=== PATIENT | male | born 1940 | race Caucasian/White ===

== ENCOUNTER 2024-02-04 12:49 | Inpatient (IN) | payer MEDICARE, OTHER ==
[~2024-02-04] VITALS: Ht 188 cm; Wt 84.0 kg
[2024-02-04] VITALS (19 sets, daily range): BP systolic 76–128; BP diastolic 44–82; PULSE 76–135; RESP 16–29; O2SAT 90–97
[2024-02-04] MEDS: amiodarone/D5 360MG/200ML BAG 200 ML IV SCH (13:00)
[2024-02-04 13:06] LABS: ABG BASE EXCESS -3.1 mmol/L (-2.0-2.0); ABG HCO3 22.8 mmol/L (22.0-26.0); ABG OXYGEN SATURATION 93.9 % (94-97); ABG PCO2 (T) 39.7 mmHg (35.0-48.0); ABG PH (T) 7.366 (7.340-7.440); ABG PO2 (T) 65.1 mmHg (75.0-100.0); ALLEN'S TEST POSITIVE; FCOHb 0.3 % (0.0-3.9); FHHb 6.1 % (0.0-5.0); FMetHb 0.1 % (0.0-1.5); FO2Hb 93.5 % (94-97); MODE VENT - AC; PATIENT TEMPERATURE 34.7; PEEP 5 cm H2O; RESPIRATORY RATE 14 b/min; TIDAL VOLUME 450 mL; TOTAL HEMOGLOBIN 12.8 G/dl (14.0-17.9)
[2024-02-04] MEDS ORDERED: midazolam 100mg in NS 100ml 100 ML IV PRN (13:10)
[2024-02-04] MEDS ORDERED: acetaminophen 325mg tablet PO PRN ×3 (13:10→16:30)
[2024-02-04] MEDS ORDERED: ondansetron/PF 4mg/2ml inj IV PRN (13:10)
[2024-02-04] MEDS ORDERED: magnesium hydroxide 30ml (MOM) UD suspension PO PRN (13:10)
[2024-02-04] MEDS: FENTANYL-0.9 % NACL/PF 100 ML IV SCH (13:15)
[2024-02-04] MEDS: MIDAZOLAM IN NACL,ISO-OSMOT/PF 100 ML IV PRN (13:15)
[2024-02-04] MEDS: NORepinephrine 8mg/ 250ml NS 250 ML IV SCH (13:56)
[2024-02-04 14:07] LABS: BASOPHILS % (AUTO) 0.1 % (0-1); EOSINOPHILS % (AUTO) 0.2 % (0-6); HEMATOCRIT 39.7 % (42.0-52.0); LYMPHOCYTES # (AUTO) 1.2 X10'3 (1.1-4.8); LYMPHOCYTES % (AUTO) 5.1 % (21-51); MEAN CORPUSCULAR HGB CONC 32.7 g/dL (33.0-36.5); MEAN CORPUSCULAR VOLUME 97.7 FL (78-98); MEAN PLATELET VOLUME 8.2 FL (7.4-10.4); MONOCYTES % (AUTO) 8.3 % (2-12); NEUTROPHILS # (AUTO) 21.1 X10'3 (1.8-7.7); NEUTROPHILS % (AUTO) 86.3 % (42-75); PLATELET COUNT 319 X10'3 (140-440); RED BLOOD COUNT 4.06 X10'6 (4.70-6.10); RED CELL DISTRIBUTION WIDTH 14.5 % (11.5-14.5); WHITE BLOOD COUNT 24.5 X10'3 (4.5-11.0)
[2024-02-04 14:12] LABS: ALBUMIN 3.4 G/DL (3.4-5.0); ANION GAP 11 (8-16); BLOOD UREA NITROGEN 22 MG/DL (7-18); BUN/CREATININE RATIO 18.3 (10.0-20.0); CALCIUM 7.8 MG/DL (8.5-10.1); CHLORIDE 107 MMOL/L (99-107); GLUCOSE 149 MG/DL (70-104); POTASSIUM 3.6 MMOL/L (3.5-5.1); PRO BRAIN NATRIURETIC PEPTIDE 541 PG/ML (0-450); SODIUM 141 MMOL/L (135-145); TOTAL CARBON DIOXIDE 22.7 MMOL/L (24-32); eCRCL 52 ML/MIN; eGFR 58 ML/MIN
[2024-02-04 14:59] LABS: ALANINE AMINOTRANSFERASE 41 U/L (12-78); ALBUMIN/GLOBULIN RATIO 1.1 (1.1-1.5); ALKALINE PHOSPHATASE 105 IU/L (46-116); ASPARTATE AMINO TRANSFERASE 43 U/L (10-37); BILIRUBIN,TOTAL 0.6 MG/DL (0.1-1.0); TOTAL PROTEIN 6.4 G/DL (6.4-8.2)
[2024-02-04] MEDS: propofol 1000mg/100ml bottle 100 ML IV ONE (15:49)
[2024-02-04] MEDS: propofol 1000mg/100ml bottle 100 ML IV SCH ×2 (16:00→21:02)
[2024-02-04] MEDS: ringers solution, lacted 1,000 ML IV ONE ×5 (16:01→23:34)
[2024-02-04 16:44] LABS: TRIGLYCERIDES 100 MG/DL (20-135)
[2024-02-04] MEDS ORDERED: WARF1TAB83 PO (17:30)
[2024-02-04] MEDS ORDERED: FLO0.4C PO (17:30)
[2024-02-04] MEDS ORDERED: DOCU-22 PO (17:30)
[2024-02-04] MEDS ORDERED: FURO20TA4 PO (17:30)
[2024-02-04] MEDS ORDERED: WARF-55 PO (17:30)
[2024-02-04] MEDS: famotidine/PF 10 mg/ml inj IV SCH (20:44)
[2024-02-04] MEDS: normal saline 1000ml 1,000 ML IV SCH (20:44)
[2024-02-05] VITALS (33 sets, daily range): BP systolic 94–129; BP diastolic 35–59; PULSE 59–91; RESP 12–23; O2SAT 94–99
[2024-02-05] MEDS: piperacillin/tazo 4.5gm/100ml 100 ML IV SCH (00:11)
[2024-02-05 01:28] LABS: BASOPHILS % (AUTO) 0.1 % (0-1); EOSINOPHILS % (AUTO) 0 % (0-6); HEMATOCRIT 37.8 % (42.0-52.0); HEMOGLOBIN 12.6 g/dl (14.0-17.9); LYMPHOCYTES # (AUTO) 0.8 X10'3 (1.1-4.8); LYMPHOCYTES % (AUTO) 3.8 % (21-51); MEAN CORPUSCULAR HEMOGLOBIN 32.3 PG (27.0-31.0); MEAN CORPUSCULAR HGB CONC 33.5 g/dL (33.0-36.5); MEAN CORPUSCULAR VOLUME 96.5 FL (78-98); MEAN PLATELET VOLUME 8.6 FL (7.4-10.4); MONOCYTES # (AUTO) 1.5 X10'3 (0-0.9); MONOCYTES % (AUTO) 7.3 % (2-12); NEUTROPHILS # (AUTO) 17.7 X10'3 (1.8-7.7); NEUTROPHILS % (AUTO) 88.8 % (42-75); PLATELET COUNT 299 X10'3 (140-440); RED BLOOD COUNT 3.92 X10'6 (4.70-6.10); RED CELL DISTRIBUTION WIDTH 14.2 % (11.5-14.5); WHITE BLOOD COUNT 19.9 X10'3 (4.5-11.0)
[2024-02-05 01:39] LABS: ALANINE AMINOTRANSFERASE 30 U/L (12-78); ALBUMIN 2.5 G/DL (3.4-5.0); ALBUMIN/GLOBULIN RATIO 1.1 (1.1-1.5); ALKALINE PHOSPHATASE 69 IU/L (46-116); ANION GAP 9 (8-16); ASPARTATE AMINO TRANSFERASE 44 U/L (10-37); BILIRUBIN,TOTAL 0.6 MG/DL (0.1-1.0); BLOOD UREA NITROGEN 20 MG/DL (7-18); CALCIUM 7.1 MG/DL (8.5-10.1); CHLORIDE 107 MMOL/L (99-107); CREATININE 1.11 MG/DL (0.60-1.10); GLUCOSE 148 MG/DL (70-104); MAGNESIUM 1.4 MG/DL (1.5-2.4); PHOSPHORUS 2.4 MG/DL (2.3-4.5); POTASSIUM 3.8 MMOL/L (3.5-5.1); SODIUM 139 MMOL/L (135-145); TOTAL CARBON DIOXIDE 22.8 MMOL/L (24-32); TOTAL PROTEIN 4.8 G/DL (6.4-8.2); TRIGLYCERIDES 161 MG/DL (20-135); eCRCL 57 ML/MIN; eGFR 63 ML/MIN
[2024-02-05] MEDS ORDERED: potassium Cl 40MEQ/270ML bag 270 ML IV PRN (01:55)
[2024-02-05] MEDS ORDERED: Potassium Cl inj 20 MEQ in normal saline 1000ml 990 ML IV PRN (01:55)
[2024-02-05] MEDS ORDERED: Neutra Phos packet PO PRN (01:55)
[2024-02-05] MEDS ORDERED: potassium Cl 20 mEq SR tablet PO PRN ×2 (01:55)
[2024-02-05] MEDS ORDERED: sodium phosphate inj. 30 MMOL in dextrose 5%-water 250 ML IV PRN (01:55)
[2024-02-05] MEDS: magnesium 2GM in 50ml NS 50 ML IV PRN (02:13)
[2024-02-05] MEDS ORDERED: potassium Cl 20mEq in NS 1,000 ML IV PRN (02:16)
[2024-02-05 03:13] LABS: ABG BASE EXCESS -6.6 mmol/L (-2.0-2.0); ABG HCO3 18.3 mmol/L (22.0-26.0); ABG OXYGEN SATURATION 96.6 % (94-97); ABG PCO2 (T) 33.3 mmHg (35.0-48.0); ABG PH (T) 7.354 (7.340-7.440); ALLEN'S TEST Modified; FCOHb 0.7 % (0.0-3.9); FHHb 3.4 % (0.0-5.0); FMetHb 0.3 % (0.0-1.5); FO2Hb 95.6 % (94-97); MODE VENT - PRVC; PATIENT TEMPERATURE 36.1; PEEP 5 cm H2O; RESPIRATORY RATE 18 b/min; TIDAL VOLUME 450 mL; TOTAL HEMOGLOBIN 13.7 G/dl (14.0-17.9)
[2024-02-05] MEDS: magnesium 4gm in 100ml NS 100 ML IV PRN (05:00)
[2024-02-05] MEDS: enoxaparin 40mg/0.4ml syringe SUBCUT SCH (07:29)
[2024-02-05] MEDS: K and/or MAG REPLACEMENT MC SCH (08:00)
[2024-02-06] VITALS (37 sets, daily range): BP systolic 88–125; BP diastolic 41–62; PULSE 67–112; RESP 13–32; O2SAT 92–100
[2024-02-06 02:06] LABS: BASOPHILS % (AUTO) 0 % (0-1); EOSINOPHILS % (AUTO) 0 % (0-6); HEMATOCRIT 37.8 % (42.0-52.0); HEMOGLOBIN 12.6 g/dl (14.0-17.9); LYMPHOCYTES # (AUTO) 0.5 X10'3 (1.1-4.8); LYMPHOCYTES % (AUTO) 2.5 % (21-51); MEAN CORPUSCULAR HEMOGLOBIN 31.9 PG (27.0-31.0); MEAN CORPUSCULAR HGB CONC 33.2 g/dL (33.0-36.5); MEAN CORPUSCULAR VOLUME 95.8 FL (78-98); MEAN PLATELET VOLUME 8.4 FL (7.4-10.4); MONOCYTES # (AUTO) 1.2 X10'3 (0-0.9); NEUTROPHILS # (AUTO) 17.9 X10'3 (1.8-7.7); NEUTROPHILS % (AUTO) 91.5 % (42-75); PLATELET COUNT 210 X10'3 (140-440); RED BLOOD COUNT 3.94 X10'6 (4.70-6.10); RED CELL DISTRIBUTION WIDTH 14.5 % (11.5-14.5); WHITE BLOOD COUNT 19.6 X10'3 (4.5-11.0)
[2024-02-06 02:22] LABS: ALANINE AMINOTRANSFERASE 29 U/L (12-78); ALBUMIN 2.4 G/DL (3.4-5.0); ALBUMIN/GLOBULIN RATIO 0.9 (1.1-1.5); ALKALINE PHOSPHATASE 68 IU/L (46-116); ANION GAP 9 (8-16); ASPARTATE AMINO TRANSFERASE 35 U/L (10-37); BILIRUBIN,TOTAL 0.7 MG/DL (0.1-1.0); BLOOD UREA NITROGEN 23 MG/DL (7-18); BUN/CREATININE RATIO 20.2 (10.0-20.0); CALCIUM 7.5 MG/DL (8.5-10.1); CHLORIDE 105 MMOL/L (99-107); CREATININE 1.14 MG/DL (0.60-1.10); GLUCOSE 146 MG/DL (70-104); MAGNESIUM 2.3 MG/DL (1.5-2.4); PHOSPHORUS 2.8 MG/DL (2.3-4.5); POTASSIUM 3.7 MMOL/L (3.5-5.1); SODIUM 135 MMOL/L (135-145); TOTAL CARBON DIOXIDE 21.2 MMOL/L (24-32); TOTAL PROTEIN 5.2 G/DL (6.4-8.2); eCRCL 55 ML/MIN; eGFR 61 ML/MIN
[2024-02-06 03:00] LABS: ABG BASE EXCESS -7.1 mmol/L (-2.0-2.0); ABG OXYGEN SATURATION 94.3 % (94-97); ABG PCO2 (T) 29.3 mmHg (35.0-48.0); ABG PH (T) 7.379 (7.340-7.440); ABG PO2 (T) 67.8 mmHg (75.0-100.0); ALLEN'S TEST Modified; FCOHb 0.5 % (0.0-3.9); FHHb 5.7 % (0.0-5.0); FMetHb 0.3 % (0.0-1.5); FO2Hb 93.5 % (94-97); MODE VENT - CPAP; PATIENT TEMPERATURE 36.2; TOTAL HEMOGLOBIN 13.1 G/dl (14.0-17.9)
[2024-02-06] MEDS: furosemide 40mg/4ml inj IV ONE ×2 (08:08→17:27)
[2024-02-06] MEDS: amiodarone 200mg tablet NG SCH (11:18)
[2024-02-06 17:56] LABS: ABG BASE EXCESS 0.5 mmol/L (-2.0-2.0); ABG HCO3 24.9 mmol/L (22.0-26.0); ABG OXYGEN SATURATION 92.8 % (94-97); ABG PCO2 (T) 40.9 mmHg (35.0-48.0); ABG PH (T) 7.406 (7.340-7.440); ABG PO2 (T) 67.9 mmHg (75.0-100.0); ALLEN'S TEST POSITIVE; FCOHb 0.5 % (0.0-3.9); FHHb 7.1 % (0.0-5.0); FLOW 15 L/min; FMetHb 0.3 % (0.0-1.5); FO2Hb 92.1 % (94-97); MODE MASK - NRB; PATIENT TEMPERATURE 37.7; TOTAL HEMOGLOBIN 12.4 G/dl (14.0-17.9)
[2024-02-06] MEDS: morphine 4 MG/ML inj SYRINge IV PRN (20:31)
[2024-02-06] MEDS: sennosides/docusate sodium tablet NG SCH (20:31)
[2024-02-07] VITALS (31 sets, daily range): BP systolic 89–123; BP diastolic 41–75; PULSE 72–107; RESP 14–43; O2SAT 84–97
[2024-02-07 02:36] LABS: BASOPHILS % (AUTO) 0.3 % (0-1); EOSINOPHILS % (AUTO) 0 % (0-6); HEMATOCRIT 33.3 % (42.0-52.0); HEMOGLOBIN 10.9 g/dl (14.0-17.9); LYMPHOCYTES # (AUTO) 0.2 X10'3 (1.1-4.8); LYMPHOCYTES % (AUTO) 1.7 % (21-51); MEAN CORPUSCULAR HEMOGLOBIN 31.3 PG (27.0-31.0); MEAN CORPUSCULAR HGB CONC 32.7 g/dL (33.0-36.5); MEAN CORPUSCULAR VOLUME 95.7 FL (78-98); MEAN PLATELET VOLUME 9.1 FL (7.4-10.4); MONOCYTES # (AUTO) 0.6 X10'3 (0-0.9); MONOCYTES % (AUTO) 4.1 % (2-12); NEUTROPHILS # (AUTO) 12.6 X10'3 (1.8-7.7); NEUTROPHILS % (AUTO) 93.9 % (42-75); PLATELET COUNT 152 X10'3 (140-440); RED BLOOD COUNT 3.48 X10'6 (4.70-6.10); RED CELL DISTRIBUTION WIDTH 14.4 % (11.5-14.5); WHITE BLOOD COUNT 13.4 X10'3 (4.5-11.0)
[2024-02-07 02:49] LABS: ALANINE AMINOTRANSFERASE 24 U/L (12-78); ALBUMIN 2.2 G/DL (3.4-5.0); ALBUMIN/GLOBULIN RATIO 0.8 (1.1-1.5); ALKALINE PHOSPHATASE 61 IU/L (46-116); ANION GAP 5 (8-16); ASPARTATE AMINO TRANSFERASE 25 U/L (10-37); BILIRUBIN,TOTAL 1.4 MG/DL (0.1-1.0); BLOOD UREA NITROGEN 20 MG/DL (7-18); CALCIUM 7.6 MG/DL (8.5-10.1); CHLORIDE 104 MMOL/L (99-107); CREATININE 1.11 MG/DL (0.60-1.10); GLUCOSE 128 MG/DL (70-104); MAGNESIUM 1.8 MG/DL (1.5-2.4); PHOSPHORUS 2.2 MG/DL (2.3-4.5); PREALBUMIN 11.9 MG/DL (19-36); SODIUM 137 MMOL/L (135-145); TOTAL CARBON DIOXIDE 28.4 MMOL/L (24-32); TOTAL PROTEIN 5.1 G/DL (6.4-8.2); TRIGLYCERIDES 79 MG/DL (20-135); eCRCL 57 ML/MIN; eGFR 63 ML/MIN
[2024-02-07 03:06] LABS: PLATELET ESTIMATE NORMAL; TOTAL CELLS COUNTED 100
[2024-02-07] MEDS: potassium Cl 20mEq/100mL bag 100 ML IV PRN (04:23)
[2024-02-07] MEDS: sodium phosphate inj. 15 MMOL in dextrose 5%-water 250 ML IV PRN (04:45)
[2024-02-07] MEDS: pantoprazole 40 MG vial IV SCH (07:41)
[2024-02-07] MEDS ORDERED: POTASSIUM CHLORIDE 20 MEQ/15 ML oral solution PO PRN ×2 (10:42→10:43)
[2024-02-07] MEDS ORDERED: POTASSIUM CHLORIDE 20 MEQ/15 ML oral solution NG PRN ×2 (10:42→10:43)
[2024-02-07] MEDS ORDERED: acetaminophen 325mg tablet NG PRN (10:45)
[2024-02-07 12:15] LABS: INR 2.8 INR
[2024-02-07] MEDS: dexmedetomidin/NS 400mcg/100ml 100 ML IV SCH (14:23)
[2024-02-07] MEDS: furosemide 40 MG/4 ML oral solution UD cup NG ONE (15:47)
[2024-02-07 19:28] LABS: ABG BASE EXCESS 1.5 mmol/L (-2.0-2.0); ABG HCO3 24.1 mmol/L (22.0-26.0); ABG OXYGEN SATURATION 93.7 % (94-97); ABG PCO2 (T) 32.5 mmHg (35.0-48.0); ABG PH (T) 7.491 (7.340-7.440); ABG PO2 (T) 69.3 mmHg (75.0-100.0); FCOHb 0.3 % (0.0-3.9); FHHb 6.3 % (0.0-5.0); FO2Hb 93.4 % (94-97); MODE MASK - BIPAP; PATIENT TEMPERATURE 37.7; TOTAL HEMOGLOBIN 11.4 G/dl (14.0-17.9)
[2024-02-07] MEDS: warfarin 3mg tablet PO ONE (21:32)
[2024-02-08] VITALS (30 sets, daily range): BP systolic 99–140; BP diastolic 42–80; PULSE 55–100; RESP 8–39; O2SAT 87–99
[2024-02-08 02:01] LABS: BASOPHILS % (AUTO) 0.1 % (0-1); EOSINOPHILS % (AUTO) 0 % (0-6); LYMPHOCYTES # (AUTO) 0.5 X10'3 (1.1-4.8); LYMPHOCYTES % (AUTO) 3.5 % (21-51); MEAN CORPUSCULAR HEMOGLOBIN 31.7 PG (27.0-31.0); MEAN CORPUSCULAR HGB CONC 33.3 g/dL (33.0-36.5); MEAN CORPUSCULAR VOLUME 95.1 FL (78-98); MONOCYTES # (AUTO) 1.2 X10'3 (0-0.9); MONOCYTES % (AUTO) 8.2 % (2-12); NEUTROPHILS # (AUTO) 13.2 X10'3 (1.8-7.7); NEUTROPHILS % (AUTO) 88.2 % (42-75); PLATELET COUNT 180 X10'3 (140-440); RED BLOOD COUNT 3.47 X10'6 (4.70-6.10); RED CELL DISTRIBUTION WIDTH 14.1 % (11.5-14.5)
[2024-02-08 02:13] LABS: ALANINE AMINOTRANSFERASE 21 U/L (12-78); ALBUMIN 2.2 G/DL (3.4-5.0); ALBUMIN/GLOBULIN RATIO 0.6 (1.1-1.5); ALKALINE PHOSPHATASE 67 IU/L (46-116); ANION GAP 2 (8-16); ASPARTATE AMINO TRANSFERASE 16 U/L (10-37); BILIRUBIN,TOTAL 1.8 MG/DL (0.1-1.0); BLOOD UREA NITROGEN 26 MG/DL (7-18); BUN/CREATININE RATIO 22.4 (10.0-20.0); CHLORIDE 107 MMOL/L (99-107); CREATININE 1.16 MG/DL (0.60-1.10); GLUCOSE 150 MG/DL (70-104); MAGNESIUM 1.8 MG/DL (1.5-2.4); PHOSPHORUS 1.9 MG/DL (2.3-4.5); POTASSIUM 3.7 MMOL/L (3.5-5.1); SODIUM 140 MMOL/L (135-145); TOTAL PROTEIN 5.6 G/DL (6.4-8.2); eCRCL 54 ML/MIN; eGFR 60 ML/MIN
[2024-02-08 02:19] LABS: INR 2.1 INR; PROTHROMBIN TIME 20.4 SECONDS (9.0-12.0)
[2024-02-08 03:57] LABS: ABG BASE EXCESS 0.8 mmol/L (-2.0-2.0); ABG HCO3 24.9 mmol/L (22.0-26.0); ABG PCO2 (T) 38.1 mmHg (35.0-48.0); ABG PH (T) 7.434 (7.340-7.440); ABG PO2 (T) 67.7 mmHg (75.0-100.0); FCOHb 0.8 % (0.0-3.9); FHHb 6.9 % (0.0-5.0); FMetHb 0.3 % (0.0-1.5); MODE MASK - BIPAP; PATIENT TEMPERATURE 37.1; RESPIRATORY RATE 12 b/min; TOTAL HEMOGLOBIN 11.4 G/dl (14.0-17.9)
[2024-02-08] MEDS: furosemide 40mg/4ml inj IV ONE ×2 (04:20→15:23)
[2024-02-08] MEDS: furosemide 40 MG/4 ML oral solution UD cup NG SCH (07:33)
[2024-02-08] MEDS: methylPREDNISolone sod succ 125mg/2ml vial IV SCH (07:34)
[2024-02-08] MEDS: Neutra Phos packet NG PRN (07:35)
[2024-02-08] MEDS: magnesium hydroxide 30ml (MOM) UD suspension NG PRN (13:21)
[2024-02-08] MEDS: morphine 2 MG/ML inj. syringe IV PRN (14:10)
[2024-02-08] MEDS ORDERED: Dextrose 10%-water IV solution 1,000 ML IV SCH (14:50)
[2024-02-08] MEDS ORDERED: DEXTROSE 15 GM of carb/4 tabs (each vial/BOTTLE has 4 tablets) PO PRN ×2 (14:50)
[2024-02-08] MEDS ORDERED: glucagon, human recombinant 1mg kit SUBCUT PRN (14:50)
[2024-02-08] MEDS ORDERED: dextrose 50%-water 50ml dispensing syringe IV PRN (14:50)
[2024-02-08] MEDS: methylPREDNISolone sod succ/PF 40mg inj. IV SCH (15:02)
[2024-02-08 17:38] LABS: HEMOGLOBIN A1C 5.5 % (4.5-6.2)
[2024-02-08] MEDS ORDERED: insulin regular, human U-100 3ml vial - multi-dose SQ SCH (20:00)
[2024-02-08] MEDS: warfarin 2.5mg tablet PO ONE (21:10)
[2024-02-08] MEDS: insulin regular, human U-100 3ml vial - multi-dose SQ SCH (21:17)
[2024-02-09] VITALS (31 sets, daily range): BP systolic 88–118; BP diastolic 37–65; PULSE 54–87; RESP 17–41; O2SAT 63–96
[2024-02-09 02:06] LABS: BASOPHILS % (AUTO) 0.1 % (0-1); EOSINOPHILS % (AUTO) 0 % (0-6); LYMPHOCYTES # (AUTO) 0.2 X10'3 (1.1-4.8); MEAN CORPUSCULAR HEMOGLOBIN 32.3 PG (27.0-31.0); MEAN CORPUSCULAR HGB CONC 34.2 g/dL (33.0-36.5); MEAN CORPUSCULAR VOLUME 94.5 FL (78-98); MEAN PLATELET VOLUME 8.5 FL (7.4-10.4); MONOCYTES # (AUTO) 0.8 X10'3 (0-0.9); MONOCYTES % (AUTO) 8.6 % (2-12); NEUTROPHILS # (AUTO) 8.4 X10'3 (1.8-7.7); NEUTROPHILS % (AUTO) 89.3 % (42-75); PLATELET COUNT 142 X10'3 (140-440); RED BLOOD COUNT 3.39 X10'6 (4.70-6.10); WHITE BLOOD COUNT 9.4 X10'3 (4.5-11.0)
[2024-02-09 02:18] LABS: INR 1.7 INR; PROTHROMBIN TIME 17.4 SECONDS (9.0-12.0)
[2024-02-09 02:22] LABS: ALANINE AMINOTRANSFERASE 15 U/L (12-78); ALBUMIN/GLOBULIN RATIO 0.5 (1.1-1.5); ALKALINE PHOSPHATASE 59 IU/L (46-116); ANION GAP 5 (8-16); ASPARTATE AMINO TRANSFERASE 7 U/L (10-37); BILIRUBIN,TOTAL 1.3 MG/DL (0.1-1.0); BLOOD UREA NITROGEN 33 MG/DL (7-18); BUN/CREATININE RATIO 29.7 (10.0-20.0); CHLORIDE 102 MMOL/L (99-107); CREATININE 1.11 MG/DL (0.60-1.10); GLUCOSE 206 MG/DL (70-104); PHOSPHORUS 2.2 MG/DL (2.3-4.5); SODIUM 141 MMOL/L (135-145); TOTAL CARBON DIOXIDE 33.8 MMOL/L (24-32); TOTAL PROTEIN 5.7 G/DL (6.4-8.2); eCRCL 57 ML/MIN; eGFR 63 ML/MIN
[2024-02-09] MEDS: NORepinephrine 8mg/ 250ml NS 250 ML IV SCH (10:52)
[2024-02-09] MEDS: methylPREDNISolone sod succ/PF 40mg inj. IV SCH (14:28)
[2024-02-09] MEDS: bisacodyl 10mg suppository rectal RC PRN (20:27)
[2024-02-09] MEDS: quetiapine 100mg tablet PO SCH (21:13)
[2024-02-09] MEDS: warfarin 4mg tablet PO ONE (21:22)
[2024-02-10] VITALS (31 sets, daily range): BP systolic 80–130; BP diastolic 42–56; PULSE 69–105; RESP 14–37; O2SAT 87–98
[2024-02-10 02:59] LABS: BASOPHILS % (AUTO) 0.1 % (0-1); EOSINOPHILS % (AUTO) 0 % (0-6); HEMATOCRIT 30.2 % (42.0-52.0); LYMPHOCYTES # (AUTO) 0.2 X10'3 (1.1-4.8); LYMPHOCYTES % (AUTO) 1.9 % (21-51); MEAN CORPUSCULAR HEMOGLOBIN 31.4 PG (27.0-31.0); MEAN CORPUSCULAR HGB CONC 33.1 g/dL (33.0-36.5); MEAN CORPUSCULAR VOLUME 95.1 FL (78-98); MEAN PLATELET VOLUME 9.7 FL (7.4-10.4); MONOCYTES # (AUTO) 0.6 X10'3 (0-0.9); MONOCYTES % (AUTO) 6.9 % (2-12); NEUTROPHILS # (AUTO) 8.5 X10'3 (1.8-7.7); NEUTROPHILS % (AUTO) 91.1 % (42-75); PLATELET COUNT 132 X10'3 (140-440); RED BLOOD COUNT 3.17 X10'6 (4.70-6.10); RED CELL DISTRIBUTION WIDTH 14.5 % (11.5-14.5); WHITE BLOOD COUNT 9.3 X10'3 (4.5-11.0)
[2024-02-10 03:07] LABS: INR 1.7 INR; PROTHROMBIN TIME 16.7 SECONDS (9.0-12.0)
[2024-02-10 03:15] LABS: ALANINE AMINOTRANSFERASE 18 U/L (12-78); ALBUMIN 1.9 G/DL (3.4-5.0); ALBUMIN/GLOBULIN RATIO 0.6 (1.1-1.5); ALKALINE PHOSPHATASE 49 IU/L (46-116); ANION GAP 3 (8-16); ASPARTATE AMINO TRANSFERASE 10 U/L (10-37); BILIRUBIN,TOTAL 1.3 MG/DL (0.1-1.0); BLOOD UREA NITROGEN 48 MG/DL (7-18); BUN/CREATININE RATIO 43.6 (10.0-20.0); CALCIUM 8.2 MG/DL (8.5-10.1); CHLORIDE 105 MMOL/L (99-107); GLUCOSE 155 MG/DL (70-104); MAGNESIUM 2.2 MG/DL (1.5-2.4); PHOSPHORUS 3.3 MG/DL (2.3-4.5); POTASSIUM 3.8 MMOL/L (3.5-5.1); SODIUM 141 MMOL/L (135-145); TOTAL CARBON DIOXIDE 32.9 MMOL/L (24-32); TOTAL PROTEIN 5.2 G/DL (6.4-8.2); TRIGLYCERIDES 108 MG/DL (20-135); eCRCL 57 ML/MIN; eGFR 64 ML/MIN
[2024-02-10] MEDS: magnesium 2GM in 50ml NS 50 ML IV ONE (09:51)
[2024-02-10] MEDS: amiodarone 200mg tablet PO ONE (09:51)
[2024-02-10] MEDS: potassium Cl 20mEq/100mL bag 100 ML IV SCH (12:22)
[2024-02-10] MEDS: amiodarone 200mg tablet NG SCH (19:42)
[2024-02-10] MEDS: warfarin 5mg tablet PO ONE (19:51)
[2024-02-10] MEDS: traZODone 50mg tablet PO ONE (21:27)
[2024-02-11] VITALS (29 sets, daily range): BP systolic 98–139; BP diastolic 41–60; PULSE 89–116; RESP 19–31; O2SAT 88–96
[2024-02-11 02:51] LABS: BASOPHILS % (AUTO) 0 % (0-1); EOSINOPHILS % (AUTO) 0 % (0-6); HEMATOCRIT 28.7 % (42.0-52.0); HEMOGLOBIN 9.5 g/dl (14.0-17.9); LYMPHOCYTES # (AUTO) 0.1 X10'3 (1.1-4.8); LYMPHOCYTES % (AUTO) 1.5 % (21-51); MEAN CORPUSCULAR HGB CONC 33.2 g/dL (33.0-36.5); MEAN CORPUSCULAR VOLUME 96.3 FL (78-98); MEAN PLATELET VOLUME 9.3 FL (7.4-10.4); MONOCYTES # (AUTO) 0.4 X10'3 (0-0.9); MONOCYTES % (AUTO) 4.6 % (2-12); NEUTROPHILS # (AUTO) 7.6 X10'3 (1.8-7.7); NEUTROPHILS % (AUTO) 93.9 % (42-75); PLATELET COUNT 135 X10'3 (140-440); RED BLOOD COUNT 2.98 X10'6 (4.70-6.10); RED CELL DISTRIBUTION WIDTH 14.5 % (11.5-14.5); WHITE BLOOD COUNT 8.1 X10'3 (4.5-11.0)
[2024-02-11 02:59] LABS: INR 2.2 INR; PROTHROMBIN TIME 22.2 SECONDS (9.0-12.0)
[2024-02-11 03:06] LABS: ALANINE AMINOTRANSFERASE 19 U/L (12-78); ALBUMIN 1.8 G/DL (3.4-5.0); ALBUMIN/GLOBULIN RATIO 0.6 (1.1-1.5); ALKALINE PHOSPHATASE 48 IU/L (46-116); ANION GAP 4 (8-16); ASPARTATE AMINO TRANSFERASE 18 U/L (10-37); BLOOD UREA NITROGEN 54 MG/DL (7-18); BUN/CREATININE RATIO 44.6 (10.0-20.0); CALCIUM 7.8 MG/DL (8.5-10.1); CHLORIDE 110 MMOL/L (99-107); CREATININE 1.21 MG/DL (0.60-1.10); GLUCOSE 195 MG/DL (70-104); MAGNESIUM 2.6 MG/DL (1.5-2.4); PHOSPHORUS 3.3 MG/DL (2.3-4.5); POTASSIUM 4.3 MMOL/L (3.5-5.1); SODIUM 147 MMOL/L (135-145); TOTAL CARBON DIOXIDE 33.3 MMOL/L (24-32); TOTAL PROTEIN 4.8 G/DL (6.4-8.2); eCRCL 50 ML/MIN; eGFR 57 ML/MIN
[2024-02-11 03:16] LABS: PREALBUMIN 11.8 MG/DL (19-36)
[2024-02-11] MEDS: warfarin 4mg tablet PO ONE (19:12)
[2024-02-12] VITALS (31 sets, daily range): BP systolic 90–116; BP diastolic 39–52; PULSE 79–101; RESP 20–36; O2SAT 83–97
[2024-02-12 05:45] LABS: BASOPHILS % (AUTO) 0.1 % (0-1); EOSINOPHILS % (AUTO) 0 % (0-6); HEMATOCRIT 30.9 % (42.0-52.0); HEMOGLOBIN 10.1 g/dl (14.0-17.9); LYMPHOCYTES # (AUTO) 0.1 X10'3 (1.1-4.8); LYMPHOCYTES % (AUTO) 1.1 % (21-51); MEAN CORPUSCULAR HEMOGLOBIN 31.7 PG (27.0-31.0); MEAN CORPUSCULAR HGB CONC 32.8 g/dL (33.0-36.5); MEAN CORPUSCULAR VOLUME 96.6 FL (78-98); MEAN PLATELET VOLUME 9.4 FL (7.4-10.4); MONOCYTES # (AUTO) 0.5 X10'3 (0-0.9); MONOCYTES % (AUTO) 3.9 % (2-12); NEUTROPHILS # (AUTO) 12.9 X10'3 (1.8-7.7); NEUTROPHILS % (AUTO) 94.9 % (42-75); PLATELET COUNT 155 X10'3 (140-440); RED CELL DISTRIBUTION WIDTH 14.5 % (11.5-14.5); WHITE BLOOD COUNT 13.6 X10'3 (4.5-11.0)
[2024-02-12 05:56] LABS: INR 2.8 INR; PROTHROMBIN TIME 26.9 SECONDS (9.0-12.0)
[2024-02-12 06:02] LABS: ALANINE AMINOTRANSFERASE 22 U/L (12-78); ALBUMIN 1.8 G/DL (3.4-5.0); ALBUMIN/GLOBULIN RATIO 0.6 (1.1-1.5); ALKALINE PHOSPHATASE 51 IU/L (46-116); ANION GAP 4 (8-16); ASPARTATE AMINO TRANSFERASE 8 U/L (10-37); BILIRUBIN,TOTAL 0.8 MG/DL (0.1-1.0); BLOOD UREA NITROGEN 48 MG/DL (7-18); BUN/CREATININE RATIO 42.1 (10.0-20.0); CALCIUM 7.9 MG/DL (8.5-10.1); CHLORIDE 108 MMOL/L (99-107); CREATININE 1.14 MG/DL (0.60-1.10); GLUCOSE 180 MG/DL (70-104); MAGNESIUM 2.3 MG/DL (1.5-2.4); PHOSPHORUS 3.4 MG/DL (2.3-4.5); SODIUM 143 MMOL/L (135-145); TOTAL CARBON DIOXIDE 31.1 MMOL/L (24-32); TRIGLYCERIDES 69 MG/DL (20-135); eCRCL 55 ML/MIN; eGFR 61 ML/MIN
[2024-02-12] MEDS: warfarin 2.5mg tablet PO ONE (20:46)
[2024-02-13] VITALS (41 sets, daily range): BP systolic 94–118; BP diastolic 35–55; PULSE 77–98; RESP 22–33; O2SAT 90–96
[2024-02-13] MEDS: furosemide 40mg/4ml inj IV ONE (02:06)
[2024-02-13 07:22] LABS: BASOPHILS % (AUTO) 0.1 % (0-1); EOSINOPHILS % (AUTO) 0 % (0-6); HEMATOCRIT 32.7 % (42.0-52.0); HEMOGLOBIN 10.8 g/dl (14.0-17.9); LYMPHOCYTES # (AUTO) 0.2 X10'3 (1.1-4.8); MEAN CORPUSCULAR HEMOGLOBIN 31.6 PG (27.0-31.0); MEAN CORPUSCULAR HGB CONC 33.1 g/dL (33.0-36.5); MEAN CORPUSCULAR VOLUME 95.6 FL (78-98); MEAN PLATELET VOLUME 9.9 FL (7.4-10.4); MONOCYTES # (AUTO) 0.4 X10'3 (0-0.9); MONOCYTES % (AUTO) 2.6 % (2-12); NEUTROPHILS % (AUTO) 96.3 % (42-75); PLATELET COUNT 160 X10'3 (140-440); RED BLOOD COUNT 3.42 X10'6 (4.70-6.10); RED CELL DISTRIBUTION WIDTH 14.1 % (11.5-14.5); WHITE BLOOD COUNT 16.6 X10'3 (4.5-11.0)
[2024-02-13 07:32] LABS: INR 2.2 INR; PROTHROMBIN TIME 22.6 SECONDS (9.0-12.0)
[2024-02-13 07:54] LABS: ALANINE AMINOTRANSFERASE 24 U/L (12-78); ALBUMIN/GLOBULIN RATIO 0.6 (1.1-1.5); ALKALINE PHOSPHATASE 58 IU/L (46-116); ANION GAP 5 (8-16); ASPARTATE AMINO TRANSFERASE 14 U/L (10-37); BILIRUBIN,TOTAL 0.9 MG/DL (0.1-1.0); BLOOD UREA NITROGEN 48 MG/DL (7-18); CALCIUM 8.2 MG/DL (8.5-10.1); CHLORIDE 103 MMOL/L (99-107); GLUCOSE 200 MG/DL (70-104); MAGNESIUM 2.1 MG/DL (1.5-2.4); PHOSPHORUS 4.2 MG/DL (2.3-4.5); POTASSIUM 5.2 MMOL/L (3.5-5.1); SODIUM 139 MMOL/L (135-145); TOTAL CARBON DIOXIDE 31.1 MMOL/L (24-32); TOTAL PROTEIN 5.3 G/DL (6.4-8.2); TRIGLYCERIDES 77 MG/DL (20-135); eCRCL 52 ML/MIN; eGFR 58 ML/MIN
[2024-02-13] MEDS: albuterol 2.5 MG/3 ML nebule NEB SCH (11:08)
[2024-02-13] MEDS ORDERED: DEXTROSE 15 GM of carb/4 tabs (each vial/BOTTLE has 4 tablets) NG PRN ×2 (11:23)
[2024-02-13] MEDS: acetaminophen 325mg tablet NG PRN (16:01)
[2024-02-13] MEDS: ringers solution, lacted 1,000 ML IV ONE (17:45)
[2024-02-13] MEDS: quetiapine 100mg tablet NG SCH (21:05)
[2024-02-13] MEDS: warfarin 2.5mg tablet PO ONE (21:12)
[2024-02-14] VITALS (31 sets, daily range): BP systolic 92–119; BP diastolic 39–77; PULSE 72–100; RESP 19–35; TEMP 100; O2SAT 89–97
[2024-02-14] MEDS: furosemide 20 MG/2 ML vial IV ONE (03:24)
[2024-02-14 03:53] LABS: BASOPHILS % (AUTO) 0.2 % (0-1); EOSINOPHILS % (AUTO) 0 % (0-6); HEMATOCRIT 32.5 % (42.0-52.0); HEMOGLOBIN 10.8 g/dl (14.0-17.9); LYMPHOCYTES # (AUTO) 0.2 X10'3 (1.1-4.8); LYMPHOCYTES % (AUTO) 0.9 % (21-51); MEAN CORPUSCULAR HEMOGLOBIN 31.6 PG (27.0-31.0); MEAN CORPUSCULAR HGB CONC 33.2 g/dL (33.0-36.5); MEAN PLATELET VOLUME 9.8 FL (7.4-10.4); MONOCYTES # (AUTO) 0.5 X10'3 (0-0.9); MONOCYTES % (AUTO) 2.7 % (2-12); NEUTROPHILS # (AUTO) 19.1 X10'3 (1.8-7.7); NEUTROPHILS % (AUTO) 96.2 % (42-75); PLATELET COUNT 180 X10'3 (140-440); RED BLOOD COUNT 3.42 X10'6 (4.70-6.10); RED CELL DISTRIBUTION WIDTH 14.3 % (11.5-14.5); WHITE BLOOD COUNT 19.9 X10'3 (4.5-11.0)
[2024-02-14 04:00] LABS: INR 1.7 INR
[2024-02-14 04:04] LABS: ALANINE AMINOTRANSFERASE 23 U/L (12-78); ALBUMIN/GLOBULIN RATIO 0.6 (1.1-1.5); ALKALINE PHOSPHATASE 66 IU/L (46-116); ANION GAP 6 (8-16); ASPARTATE AMINO TRANSFERASE 13 U/L (10-37); BILIRUBIN,TOTAL 0.9 MG/DL (0.1-1.0); BLOOD UREA NITROGEN 45 MG/DL (7-18); BUN/CREATININE RATIO 39.5 (10.0-20.0); CALCIUM 8.2 MG/DL (8.5-10.1); CHLORIDE 103 MMOL/L (99-107); CREATININE 1.14 MG/DL (0.60-1.10); GLUCOSE 201 MG/DL (70-104); MAGNESIUM 2.1 MG/DL (1.5-2.4); POTASSIUM 5.3 MMOL/L (3.5-5.1); PREALBUMIN 21.1 MG/DL (19-36); SODIUM 139 MMOL/L (135-145); TOTAL PROTEIN 5.4 G/DL (6.4-8.2); eCRCL 55 ML/MIN; eGFR 61 ML/MIN
[2024-02-14] MEDS: furosemide 20 MG/2 ML vial IV SCH (08:58)
[2024-02-14] MEDS ORDERED: morphine 10mg/ml inj. IV PRN (14:30)
[2024-02-14] MEDS: scopolamine 1MG/72H patch 1 PATCH PATCH.TD.3 TD SCH (20:36)
[2024-02-14] MEDS ORDERED: warfarin 3mg tablet PO ONE (21:00)
[2024-02-14] MEDS: morphine 10mg/0.5ml (conc. morphine) oral syringe PO PRN (22:33)
[2024-02-15] MEDS: diazepam inj 5 MG/ML inj. IV PRN ×3 (04:14→16:46)
[2024-02-15 10:00] VITALS: BP 97/51; PULSE 98; RESP 32; TEMP 97.7; O2SAT 96
[2024-02-15] MEDS: morphine 10mg/0.5ml (conc. morphine) oral syringe PO PRN (14:05)
[2024-02-15 15:10] VITALS: RESP 30
[2024-02-16 03:08] VITALS: RESP 25
== END 2024-02-16 06:15 | DRG 871 ==
LOC: ER 12:49 → ED HOLD 13:12 → CICU 2S 16:45 → SUR 3N 02-14 17:05
PROVIDERS: ADMIT Internal Medicine Critical Care Medicine; ATTEND Internal Medicine Critical Care Medicine
PROC: 5A1945Z Respiratory Ventilation, 24-96 Consecutive Hours (ICD-10-PCS; principal; 2024-02-04)
PROC: 0BH17EZ Insertion of Endotracheal Airway into Trachea, Via Natural or Artificial Opening (ICD-10-PCS; 2024-02-04)
PROC: 05HY33Z Insertion of Infusion Device into Upper Vein, Percutaneous Approach (ICD-10-PCS; 2024-02-04)
PROC: 5A09357 Assistance with Respiratory Ventilation, Less than 24 Consecutive Hours, Continuous Positive Airway Pressure (ICD-10-PCS; 2024-02-06)
PROC: 5A0935A Assistance with Respiratory Ventilation, Less than 24 Consecutive Hours, High Flow/Velocity Cannula (ICD-10-PCS; 2024-02-06)
PROC: 5A09357 Assistance with Respiratory Ventilation, Less than 24 Consecutive Hours, Continuous Positive Airway Pressure (ICD-10-PCS; 2024-02-07)
PROC: 5A0935A Assistance with Respiratory Ventilation, Less than 24 Consecutive Hours, High Flow/Velocity Cannula (ICD-10-PCS; 2024-02-07)
PROC: 5A09357 Assistance with Respiratory Ventilation, Less than 24 Consecutive Hours, Continuous Positive Airway Pressure (ICD-10-PCS; 2024-02-08)
PROC: 5A09357 Assistance with Respiratory Ventilation, Less than 24 Consecutive Hours, Continuous Positive Airway Pressure (ICD-10-PCS; 2024-02-09)
PROC: 5A0935A Assistance with Respiratory Ventilation, Less than 24 Consecutive Hours, High Flow/Velocity Cannula (ICD-10-PCS; 2024-02-09)
PROC: 5A0935A Assistance with Respiratory Ventilation, Less than 24 Consecutive Hours, High Flow/Velocity Cannula (ICD-10-PCS; 2024-02-10)
PROC: 5A09457 Assistance with Respiratory Ventilation, 24-96 Consecutive Hours, Continuous Positive Airway Pressure (ICD-10-PCS; 2024-02-10)
PROC: 05HF33Z Insertion of Infusion Device into Left Cephalic Vein, Percutaneous Approach (ICD-10-PCS; 2024-02-11)
PROC: 5A09357 Assistance with Respiratory Ventilation, Less than 24 Consecutive Hours, Continuous Positive Airway Pressure (ICD-10-PCS; 2024-02-12)
PROC: 5A0935A Assistance with Respiratory Ventilation, Less than 24 Consecutive Hours, High Flow/Velocity Cannula (ICD-10-PCS; 2024-02-12)
PROC: 5A09357 Assistance with Respiratory Ventilation, Less than 24 Consecutive Hours, Continuous Positive Airway Pressure (ICD-10-PCS; 2024-02-13)
PROC: 5A0935A Assistance with Respiratory Ventilation, Less than 24 Consecutive Hours, High Flow/Velocity Cannula (ICD-10-PCS; 2024-02-13)
PROC: 5A09357 Assistance with Respiratory Ventilation, Less than 24 Consecutive Hours, Continuous Positive Airway Pressure (ICD-10-PCS; 2024-02-14)
PROC: 5A0935A Assistance with Respiratory Ventilation, Less than 24 Consecutive Hours, High Flow/Velocity Cannula (ICD-10-PCS; 2024-02-14)
DX: A41.9 Sepsis, unspecified organism (principal); J69.0 Pneumonitis due to inhalation of food and vomit; R65.21 Severe sepsis with septic shock; J96.01 Acute respiratory failure with hypoxia; I47.20 Ventricular tachycardia, unspecified; I48.20 Chronic atrial fibrillation, unspecified; I51.81 Takotsubo syndrome; I46.9 Cardiac arrest, cause unspecified; N40.0 Benign prostatic hyperplasia without lower urinary tract symptoms; E87.70 Fluid overload, unspecified; Z66 Do not resuscitate; I49.01 Ventricular fibrillation; G47.00 Insomnia, unspecified; E87.5 Hyperkalemia
CPT/HCPCS: 36410; 36415; 36600; 70450; 71045; 74018; 76937; 80053; 82803; 82948; 83036; 83605; 83735; 83880; 84100; 84132; 84134; 84478; 84484; 85007; 85018; 85025; 85610; 87040; 87070; 87081; 92508; 92616; 93005; 93306; 94003; 94640; 94660; 94760; 99285; A4314; A4349; A4615; A4624; A5200; A6213; A6250; A6258; A6449; A6590; C1751; C1758; C9113; G0378; J0282; J1650; J1815; J1940; J2270; J2543; J2704; J2919; J3010; J3360; J3475; J3480; J3490; J7030; J7040; J7060; J7120